=== PATIENT | female | born 1985 | race Two or more races ===

== ENCOUNTER 2025-08-13 17:14 | Emergency (ER) | payer MEDICAID, SELFPAY ==
[2025-08-13 17:49] VITALS: BP 132/90; PULSE 100; RESP 18; TEMP 36.7; O2SAT 95; BMI 27.8
--- NOTE | 2025-08-13 18:36 | XR_ITS ---
Examination: CT brain head without contrast. 2-D sagittal coronal reconstructions Date and time of exam: August 13, 2025, 1840 hours INDICATIONS: Generalized head pain with facial numbness today CTDI: vol (mGy): 49.6 DLP: (mGycm): 950 Technique: Multiple CT axial sections of the brain have been obtained, 5 mm slice thickness. Contrast has not been administered. 2-D sagittal, coronal reconstructions have been obtained Low dose protocols were performed. One or more of the following dose reduction techniques were used; automated exposure control, adjustment of the mA and/or KV according to patient size, use of iterative reconstruction technique. Findings: No significant ventricular enlargement. Intra-axial or extra-axial hemorrhage density is not seen. No mass effect or midline shift Basal cisterns are not remarkable. Fourth ventricle is midline. Cranial vault intact. Impression: Negative for acute hemorrhage, mass effect or midline shift As clinically warranted, brain MRI follow-up would best assess for demyelinating disease
--- NOTE | 2025-08-13 18:36 | EDRME_ITS ---
Rapid Medical Screening Exam [facility] Arrival date/time: 08/13/25 17:14 40F with no significant PMH presents to ED with 2 days of OWUSU with some facial/tongue numbness the latter of which has mostly resolved. Chief Complaint: Anxiety Vital signs: Vital Signs Temperature 98.1 F 08/13/25 17:49 Pulse Rate 100 08/13/25 17:49 Respiratory Rate 18 08/13/25 17:49 Blood Pressure 132/90 H 08/13/25 17:49 Pulse Oximetry (%) 95 08/13/25 17:49 Oxygen Delivery Method Room Air 08/13/25 17:49 Exam: Normal pupil response and EOM. CN II-XII grossly intact. Neg pronator drift test. Speech normal. Clinical Impression: anxiety vs sinusitis vs migraine vs CVA/TIA
[2025-08-13] MEDS: DIAZEPAM 5 MG TABLET PO (19:01)
[2025-08-13 19:04] LABS: Basophils # (Auto) 0.0 Thou/mm3 (0.0-0.2); Basophils % (Auto) 0 % (0-2.5); Eosinophils # (Auto) 0.3 Thou/mm3 (0.0-0.5); Eosinophils % (Auto) 3 % (0-10); Hematocrit 43.8 % (36.0-46.0); Hemoglobin 14.7 g/dL (12.0-16.0); Immature Granulocytes Auto 0.03 Thou/mm3 (0.00-0.00); Lymphocytes # (Auto) 2.7 Thou/mm3 (1.0-4.8); Lymphocytes % (Auto) 24 % (10-50); Mean Corpuscular HGB Conc 33.6 g/dl (31.0-37.0); Mean Corpuscular Hemoglobin 30.1 pg (25.0-35.0); Mean Corpuscular Volume 90 fL (80-100); Monocytes # (Auto) 0.7 Thou/mm3 (0.0-0.8); Monocytes % (Auto) 6 % (0-12); Neutrophils # (Auto) 7.5 Thou/mm3 (1.8-7.7); Neutrophils % (Auto) 67 % (37-80); Nucleated Red Blood Cell # 0.00 Thou/mm3 (0.00-0.00); Nucleated Red Blood Cell % 0 /100 WBC (0); Platelet Count 248 Thou/mm3 (140-440); RDW Standard Deviation 41.1 fL (36.4-46.3); Red Blood Count 4.89 Miln/mm3 (4.00-5.20); White Blood Count 11.1 Thou/mm3 (3.6-11.0)
[2025-08-13 19:22] LABS: Alanine Aminotransferase 23 U/L (10-49); Albumin, Serum 4.6 gm/dL (3.5-5.0); Albumin/Globulin Ratio 1.3 (1.2-2.2); Alkaline Phosphatase 101 U/L (46-116); Anion Gap 8 (7-16); Aspartate Amino Transferase 18 U/L (0-34); BUN/Creatinine Ratio 11 Ratio (12-20); Bilirubin,Total 0.4 mg/dL (0.3-1.2); Blood Urea Nitrogen 9 mg/dL (9-23); Calcium 9.9 mg/dL (8.3-10.6); Calcium (Corrected) 9.9 mg/dL (8.5-10.1); Carbon Dioxide 27.9 mMol/L (20.0-31.0); Chloride 106 mMol/L (98-107); Creatinine (Component) 0.8 mg/dL (0.6-1.3); Estimated Creatinine Clearance 88.4 mL/min (>60); Globulin 3.5 gm/dL (2.3-3.5); Glucose 115 mg/dL (74-106); Osmolality,Calculated 282 (275-295); Potassium 4.2 mMol/L (3.4-5.1); Sodium 142 mMol/L (136-145); Total Protein 8.1 gm/dL (5.7-8.2); eGFR > 60 See Note
[2025-08-13 19:44] LABS: Collection Type, Urine Clean Catch
[2025-08-13 19:52] LABS: HCG Qualitative,Urine Negative
[2025-08-13 19:53] LABS: Bilirubin,Urine Negative (Negative); Blood,Urine Negative (Negative); Clarity,Urine Clear (Clear/Hazy); Color,Urine Lt-Yellow (Lt Yel-Yel); Culture Indicated,Urine Not Indicated; Glucose, Urine Negative (Negative); Ketones,Urine Negative (Negative); Leukocyte Esterase,Urine Negative (Negative); Nitrite,Urine Negative (Negative); PH,Urine 6.5 (5.0-7.0); Protein,Urine Negative (Neg - Trace); RBC,Urine 1 /hpf (0-3); Specific Gravity,Urine 1.012 (1.001-1.035); Squamous Epithelial Cell,Urine 1 /hpf (0-5); Urobilinogen,Urine Negative mg/dL (0.0-1.0); WBC,Urine 1 /hpf (0-5)
[2025-08-13 19:59] LABS: Amphetamine/Methamp Scrn,U Negative (Negative); Barbiturate Screen,Urine Negative (Negative); Benzodiazepines Screen,Urine Negative (Negative); Benzoylecgonine Screen, Ur Negative (Negative); Fentanyl Screen,Urine Negative (Negative); Opiate Screen,Urine Negative (Negative); THC Screen,Urine Negative (Negative)
--- NOTE | 2025-08-13 21:14 | EDNOTE_ITS ---
ED Anxiety RME/HPI General Chief Complaint: Anxiety Stated Complaint: Anxiety, OWUSU, numb to arms and hands Time Seen by Provider: 08/13/25 18:50 Source: patient Arrival date/time: 08/13/25 17:14 Mode of arrival: ambulatory Limitations: language barrier RME / HPI RME / HPI narrative: 08/13/25 17:14 40F with no significant PMH presents to ED with 2 days of OWUSU with some facial/tongue numbness the latter of which has mostly resolved. Exam: Normal pupil response and EOM. CN II-XII grossly intact. Neg pronator drift t est. Speech normal. Impression: anxiety vs sinusitis vs migraine vs CVA/TIA Related Data Previous Rx's ?Medication ?Instructions ?Recorded lorazepam 0.5 mg tablet (Ativan) 0.5 mg PO BID PRN anx iety #10 tabs 08/13/25 Allergies Allergy/AdvReac Type Severity Reaction Status Date / Time No Known Drug Allergies Allergy Verified 08/13/25 17:18 Review of Systems Review of Systems Systems Reviewed: All systems reviewed, normal except as documented Past Medical History Past Medical History PSYCHO/SOCIAL: Positive Anxiety Social History SMOKING STATUS: Never smoker ED Exam Narrative Physical exam: Patient had nonspecific complaints. Patient did not look toxic. General Limitations: Present language barrier General appearance: Present alert and in distress (Patient displays a mild distress due to her complaints of head tingling, tongue tingling and bilateral arm tingling.) Head Head exam: Present atraumatic and other (Unremarkable cranial evaluation. No signs of trauma. No skull depression or deformity.) Eye Eye exam: Present normal appearance, PERRL and EOMI ENT ENT exam: Present normal exam, normal oropharynx and mucous membranes moist Neck Neck exam: Present normal inspection, full ROM and trachea midline Chest Chest inspection: Present normal inspection and symmetric chest wall rise Respiratory Respiratory exam: Present normal lung sounds bilaterally Cardiovascular Cardiovascular exam: Present regular rate, normal rhythm and normal heart sounds Abdominal Exam Abdominal exam: Present soft and normal bowel sounds Extremities Exam Extremities exam: Present normal inspection, full ROM and other (Unremarkable evaluation of bilateral upper extremities. No signs of trauma. Distal neurovascular tact bilaterally.) Back Exam Back exam: Present normal inspection and full ROM Neurological Exam Neurological exam: Present alert, oriented X3 and CN II-XII intact Psychiatric Psychiatric exam: Present normal affect and normal mood Skin Skin exam: Present warm, dry, intact and normal color Course Quality Measures none Orders Category Date Time Status CT head/brain wo con Stat Exams 08/13/25 18:36 Completed CBC Stat Lab 08/13/25 18:51 Completed CMP [Comprehensive Metabolic Panel] Stat Lab 08/13/25 18:51 Completed Drug Screen,Urine Stat Lab 08/13/25 19:31 Completed HCG Qualitative,Urine Stat Lab 08/13/25 19:31 Completed Urinalysis, C/S if Indicated Stat Lab 08/13/25 19:31 Completed Diazepam [Valium] Med 08/13/25 18:36 Discontinued 5 mg PO X1 ONE Vital Signs Vital signs: Vital Signs Temperature 98.1 F 08/13/25 17:49 Pulse Rate 100 08/13/25 17:49 Respiratory Rate 18 08/13/25 17:49 Blood Pressure 132/90 H 08/13/25 17:49 Pulse Oximetry (%) 95 08/13/25 17:49 Oxygen Delivery Method Room Air 08/13/25 17:49 Anxiety MDM Narrative MDM Narrative: All studies performed in the ED were evaluated by me personally. Imaging studies were unremarkable for any intracranial concerns or neoplasm. Laboratori es unremarkable for any systemic concerns as was urine. Patient appears to be sepsis from mild anxiety. Patient will be sent home with supportive medication advised to follow-up with primary care provider as needed. Patient data External records reviewed:: [facility] previous records Clinical information provided by:: patient Social determinants that could affect healthcare access:: none Patient has the following chronic illnesses:: Anxiety How is presenting disease/condition affected by chronic disease/condition?: caused by Evaluation data The following diagnostics were reviewed and interpreted by me:: lab results, radiology exam(s) and EKG tracing(s) Lab and/or radiology exams considered but not ordered:: None Interpretation Summary: Anxiety Medications / Prescriptions Medications or Prescriptions considered but not ordered:: None Medication administrations:: Medication Administration History Discontinued Medications Diazepam (Diazepam 5 Mg Tablet) 5 mg PO X1 ONE Stop: 08/13/25 18:37 Last Admin: 08/13/25 19:01 Dose: 5 mg Documented By: Consultations Consultation(s) initiated? (list below): No Diagnosis Differential diagnosis anxiety: acute anxiety Most likely diagnosis given after review of the tests above:: Acute anxiety Admission Indicated Admission indicated?: not indicated Explain why admission is indicated or not indicated:: Unwarranted Admission Request Was there a request for admission?: No Disposition Plan Disposition Plan: Discharge Discharge Attestation Discharge Attestation: The patient and all family members were given an opportunity to ask questions and understood the discharge instructions. Discharge instructions specifically effects, indications for sooner follow up or return to the emergency department, and the expected course of current diagnosis. Patient condition: Stable Discharge Plan Plan Patient Disposition: HOME (Self Care) Prescriptions/Referrals Prescriptions/Med Rec: New lorazepam [Ativan] 0.5 mg tablet 0.5 mg PO BID PRN (Reason: anxiety) Qty: 10 0RF Referrals: Nimesh Mcnair MD [Primary Care Provider, Family Practice] - In 1 week Problem List Clinical Impression: Acute anxiety Patient/Caregiver Discharge Instructions Education Materials: Understanding Anxiety Disorders Additional Instructions: Advise utilizing medication as needed for symptomatic relief. Patient should follow-up with primary care provider for possible mental health referral and evaluation. Print Language: Wolof Stand Alone Forms: [facility] Award Info., Patient Portal Info Letter
== END 2025-08-13 21:25 | disposition home or self-care (01) ==
PROVIDERS: Physician Assistant; Emergency Provider Emergency Medicine; PCP Family Medicine
DX: F41.9 Anxiety disorder, unspecified (principal); R51.9 Headache, unspecified
CPT/HCPCS: 36415; 70450; 80053; 80307; 81001; 81025; 85025; 99283; A9270